=== PATIENT | female | born 1965 | race Caucasian/White ===

== ENCOUNTER 2016-08-12 07:58 | Day surgery (SDC) | payer BC ==
[~2016-08-12 07:58] MED LIST: DIPHENHYDRAMINE HCL 50 MG/ML VIAL ONE; EPINEPHRINE INJ 1 MG/10 ML DISP.SYRIN ONE; FLUMAZENIL INJ 0.5 MG/5 ML VIAL IV ONE; GLUCAGON,HUMAN RECOMB 1 MG INJ ONE; NALOXONE HCL INJ/PF 0.4 MG/1 ML SDV ONE; ONDANSETRON HCL INJ/PF 4 MG/2 ML SDV ONE; PROMETHAZINE HCL INJ 25 MG/1 ML VIAL ONE
[2016-08-12] MEDS: MIDAZOLAM 2 MG/2 ML INJ ONE ×3 (08:46→08:56)
[2016-08-12] MEDS: FENTANYL CITRATE INJ/PF 100 MCG/2 ML AMPUL ONE ×3 (08:48→08:54)
--- NOTE | 2016-08-12 09:53 | Operative Report ---
Operative Report DATE OF SURGERY: 08/12/16 Operative Report: The risks benefits and alternatives of the procedure explained to the patient in detail and informed consent is obtained that GIF Olympus video scope was inserted into the patient's mouth and hypopharynx the esophagus is identified intubated and insufflated the scope was then advanced through the esophagus stomach and duodenum retroflexion maneuver is done the esophagus stomach and first and second portions of the duodenum examined PREOPERATIVE DIAGNOSIS: Dysphagia POSTOPERATIVE DIAGNOSIS: Schatzki's ring. Hiatal hernia. Gastritis OPERATION: EGD with biopsy SURGEON: OSMIN ALVAREZ ANESTHESIA: Moderate Sedation - 6 mg of Versed, 100 g of fentanyl. Conscious sedation monitoring done 15 minutes. TISSUE REMOVED OR ALTERED: Gastric specimens obtained COMPLICATIONS: None. ESTIMATED BLOOD LOSS: none INTRAOPERATIVE FINDINGS: Schatzki's ring that is broken. PROCEDURE: Patient tolerated the procedure well. No immediate postprocedure complications are noted. Patient is discharged in good condition. Discharge date 08/12/2016. Discharge diet: Regular. Discharge activity: Regular. 2-3 week follow-up to discuss findings. We'll await on biopsies. Patient is instructed to call the office or proceed to the emergency room should there be any further problems or questions.
[2016-08-12 10:11] VITALS: BP 115/70
== END 2016-08-12 10:15 | disposition home or self-care (01) ==
LOC: END 07:58
PROVIDERS: ATTEND Internal Medicine Gastroenterology
PROC: 0DB68ZX Excision of Stomach, Via Natural or Artificial Opening Endoscopic, Diagnostic (ICD-10-PCS; principal; 2016-08-12 08:30)
DX: K44.9 Diaphragmatic hernia without obstruction or gangrene (principal); K29.50 Unspecified chronic gastritis without bleeding; K22.2 Esophageal obstruction; I10 Essential (primary) hypertension; G47.30 Sleep apnea, unspecified; F41.1 Generalized anxiety disorder; F33.8 Other recurrent depressive disorders; M19.90 Unspecified osteoarthritis, unspecified site; Z79.899 Other long term (current) drug therapy
CPT/HCPCS: 43239; 88342 ×2; 88305 ×2; J2250; J3010; J0171; J1200; J1610; J2310; J2405; J2550; J3490

== ENCOUNTER → 2017-05-19 | Outpatient (CLI) | payer BC ==
--- NOTE | 2017-05-19 12:13 | RADIOLOGY REPORT (SQ) ---
EXAM DESCRIPTION: U/S ABDOMEN COMPLETE W/O DOP COMPLETED DATE/TIME: 05/19/2017 10:48 am REASON FOR STUDY: RUQ ABD PAIN (R10.11) R10.11 RIGHT UPPER QUADRANT PAIN COMPARISON: None. TECHNIQUE: Dynamic and static grayscale images acquired of the abdomen and recorded on PACS. Additio nal selected color Doppler and spectral images recorded. LIMITATIONS: Midline bowel gas FINDINGS: PANCREAS: Midline pancreas unremarkable LIVER: No masses. Echotexture normal. LIVER VASCULATURE: Normal directional flow of the main portal vein and hepatic veins. GALLBLADDER: No stones. Normal wall thickness. No pericholecystic fluid. ULTRASOUND-DETECTED JONES'S SIGN: Negative. INTRAHEPATIC DUCTS AND COMMON DUCT: CBD and intrahepatic ducts normal caliber. No filling defects. INFERIOR VENA CAVA: Normal flow. AORTA: Not well seen RIGHT KIDNEY: Normal size. Normal echogenicity. No solid or suspicious masses. No hydronephros is. No calcifications. LEFT KIDNEY: Normal size. Normal echogenicity. No solid or suspicious masses. No hydronephrosi s. No calcifications. SPLEEN: Normal size. No solid masses. PERITONEAL AND PLEURAL SPACES: No ascites or effusions. OTHER: No other significant finding. IMPRESSION: Abdominal aorta not well seen due to midline bowel gas. Otherwise unremarkable study TECHNICAL DOCUMENTATION: JOB ID: [id number] [email or web address]- All Rights Reserved
== END ==
LOC: RAD 09:56
PROVIDERS: ATTEND Physician Assistant
DX: R10.11 Right upper quadrant pain (principal)
CPT/HCPCS: 76700

== ENCOUNTER → 2019-06-05 | Outpatient (CLI) | payer BC ==
--- NOTE | 2019-06-06 00:34 | XCELERA REPORT ---
[address] [address] Transthoracic Echocardiogram Report Name: SILVERIO CONLEY Age: 53 yrs Gender: Female : 1965 Patient Status: Outpatient Patient Location: Study Date: 06/05/2019 11:01 AM Height: 66 in Weight: 282 lb BSA: 2.3 m2 Procedure: A two-dimensional transthoracic echocardiogram with color flow and Doppler was performed. The study was technically difficult with many images being suboptimal in quality. The study was technically limited with all images being suboptimal in quality. Reason For Study: MURMUR History: MURMUR. Ordering Physician: IRMA ADAMS Performed By: Caroline Jimenez Interpretation Summary The left ventricle is normal in size. There is normal left ventricular wall thickness. LV EF is 65% Left ventricular systolic function is normal. Doppler measurements suggest impaired left ventricular relaxation, which is associated with grade I/IV or mild diastolic dysfunction The left ventricular wall motion is normal. There is no thrombus. Probably no ASD,VSD,or PFO seen. The right ventricle is grossly normal size. The right ventricle is not well visualized secondary to technical limitations The right atrium is normal. The left atrial size is normal. There is no evidence of mitral valve prolapse. There is no vegetation seen on the mitral valve. There is no mitral valve stenosis. There is no mitral regurgitation noted. There is no aortic valvular vegetation. There is no aortic valve stenosis There is no LVOT obstruction. No aortic regurgitation is present. There is no tricuspid stenosis. There is a trace amount of tricuspid regurgitation Right ventricular systolic pressure is at the upper limits of normal of Normal.RVSP is 25 to 30 mm of Hg , with RA mean of 5 to 10. There is no pulmonic valvular stenosis. There is a trace amount of pulmonic regurgitation The aortic root is normal size. The inferior vena cava appeared normal and decreased > 50% with respiration (RAP 5-10 mmHg) There is no pericardial effusion. MMode/2D Measurements & Calculations RVDd: 3.0 cm LVIDd: 3.8 cm FS: 39.0 % Ao root diam: 2.8 cm IVSd: 1.3 cm LVIDs: 2.3 cm EDV(Teich): 61.8 ml Ao root area: 6.4 cm2 LVPWd: 0.94 cm ESV(Teich): 18.4 ml LA dimension: 3.6 cm EF(Teich): 70.2 % Doppler Measurements & Calculations MV E max tracey: MV P1/2t max tracey: Ao V2 max: LV V1 max P.4 cm/sec 79.0 cm/sec 128.3 cm/sec 6.7 mmHg MV A max tracey: MV P1/2t: 63.8 msec Ao max PG: LV V1 max: 70.2 cm/sec MVA(P1/2t): 3.4 cm2 6.6 mmHg 129.8 cm/sec MV E/A: 0.92 MV dec slope: 362.7 cm/sec2 MV dec time: 0.21 sec TV V2 max: PA V2 max: TR max tracey: MV P1/2t-pr_phl: 184.0 cm/sec 72.7 cm/sec 221.8 cm/sec 63.8 msec TV max PG: PA max P.1 mmHg TR max P.5 mmHg 19.7 mmHg Left Ventricle The left ventricle is normal in size. There is normal left ventricular wall thickness. LV EF is 65%. Left ventricular systolic function is normal. Doppler measurements suggest impaired left ventricular relaxation, which is associated with grade I/IV or mild diastolic dysfunction. The left ventricular wall motion is normal. There is no thrombus. Probably no ASD,VSD,or PFO seen. Right Ventricle The right ventricle is grossly normal size. The right ventricle is not well visualized secondary to technical limitations. Atria The right atrium is normal. The left atrial size is normal. Mitral Valve There is no evidence of mitral valve prolapse. There is no vegetation seen on the mitral valve. There is no mitral valve stenosis. There is no mitral regurgitation noted. Aortic Valve There is no aortic valvular vegetation. There is no aortic valve stenosis. There is no LVOT obstruction. No aortic regurgitation is present. Tricuspid Valve There is no tricuspid stenosis. There is a trace amount of tricuspid regurgitation. Right ventricular systolic pressure is at the upper limits of normal. of Normal.RVSP is 25 to 30 mm of Hg , with RA mean of 5 to 10. Pulmonic Valve There is no pulmonic valvular stenosis. There is a trace amount of pulmonic regurgitation. Great Vessels The aortic root is normal size. The inferior vena cava appeared normal and decreased > 50% with respiration (RAP 5-10 mmHg). Effusions There is no pericardial effusion. : IRMA ADAMS Lakshmi
== END ==
LOC: SP 10:47
PROVIDERS: ATTEND Physician Assistant
DX: R01.1 Cardiac murmur, unspecified (principal)
CPT/HCPCS: 93306

== ENCOUNTER 2019-07-01 07:41 | Day surgery (SDC) | payer BC ==
[~2019-07-01 07:41] MED LIST changes: -DIPHENHYDRAMINE HCL 50 MG/ML VIAL ONE; -EPINEPHRINE INJ 1 MG/10 ML DISP.SYRIN ONE; -FLUMAZENIL INJ 0.5 MG/5 ML VIAL IV ONE; -GLUCAGON,HUMAN RECOMB 1 MG INJ ONE; -NALOXONE HCL INJ/PF 0.4 MG/1 ML SDV ONE; -ONDANSETRON HCL INJ/PF 4 MG/2 ML SDV ONE; -PROMETHAZINE HCL INJ 25 MG/1 ML VIAL ONE; +PROPOFOL INJ 200 MG/20 ML VIAL IV ONE
[2019-07-01] MEDS ORDERED: PROPOFOL INJ 200 MG/20 ML VIAL IV ONE (10:09)
[2019-07-01 10:54] VITALS: BP 123/78
--- NOTE | 2019-07-01 12:51 | Operative Report ---
Operative Report DATE OF SURGERY: 07/01/19 Operative Report: Risk, benefits and alternatives of the procedure including the risk of bleeding, perforation requiring surgery have been explained to the patient in detail and informed consent has been obtained. Propofol medication is administered. Rectal examination is done which did not reveal any masses, tears or fissures. Colonoscopy completed to the cecum with evaluation of all of the various segments. Retroflexion maneuvers performed. Upper endoscopy done performed. All of the segments are evaluated. Retroflexion maneuvers performed. PREOPERATIVE DIAGNOSIS: Dysphagia. Personal history of polyp POSTOPERATIVE DIAGNOSIS: Right colon Inflammation status post biopsy. Descending colon polyp status post biopsy. Diverticulosis. Internal hemorrhoids. Gastritis status post biopsy. Schatzki's ring status post br eakage OPERATION: Colonoscopy with biopsy. EGD with biopsy SURGEON: OSMIN ALVAREZ ANESTHESIA: LMAC TISSUE REMOVED OR ALTERED: As noted above. COMPLICATIONS: None. ESTIMATED BLOOD LOSS: None. INTRAOPERATIVE FINDINGS: As noted above. PROCEDURE: Patient tolerated the procedure well. No immediate postprocedure complications are noted. Patient is discharged in good condition. Discharge date 07/01/2019. Discharge diet: Regular. Discharge activity: Regular. 2 to 3-week follow-up to discuss findings. Patient is instructed to call the office or proceed to the emergency room should there be any further problems or questions. Wait on the pathology. 5-year surveillance colonoscopy.
== END 2019-07-01 10:45 | disposition home or self-care (01) ==
LOC: END 07:41
PROVIDERS: ATTEND Internal Medicine Gastroenterology
DX: Z12.11 Encounter for screening for malignant neoplasm of colon (principal); K57.30 Diverticulosis of large intestine without perforation or abscess without bleeding; D12.4 Benign neoplasm of descending colon; K64.8 Other hemorrhoids; K22.2 Esophageal obstruction; K52.9 Noninfective gastroenteritis and colitis, unspecified; Z86.010 Personal history of colon polyps; I10 Essential (primary) hypertension; G47.33 Obstructive sleep apnea (adult) (pediatric); E66.9 Obesity, unspecified; Z68.41 Body mass index [BMI] 40.0-44.9, adult
CPT/HCPCS: 43239; 45380; 88342 ×2; 88305 ×2; 00813; J2704; 813

== ENCOUNTER 2019-11-11 17:05 | Emergency (ER) | payer BC ==
[2019-11-11] MEDS ORDERED: ACETAMINOPHEN 325 MG TABLET PO ONE (20:36)
--- NOTE | 2019-11-11 20:39 | ER Document Report ---
ED General - General Chief Complaint: Fever Stated Complaint: FEVER,SORE THROAT,HEADACHE Time Seen by Provider: 11/11/19 20:09 Primary Care Provider: IRMA ADAMS PA-C [Primary Care Provider] - Follow up as needed Notes: 54-year-old female with past medical history of migraines, chronic low back pain and hypertension presenting today for headache and fever. States that she typically checks her 's temperature and his was 100 today and she checked hers and her temp was 99.4 at home. States she typically takes ibuprofen for her back pain and last dose of ibuprofen was this morning. She has a mild headache for 2 days. Described as a congestion pressure. No sharp stabbing pain. No pain behind the eye. Described as more along lateral head. States she may have some mild sinus congestion as well. No nausea/vomiting. No acute severe onset. No nuchal rigidity. No neck pain. No photophobia. No acute trauma to the head. She denies any additional symptoms to include chills, shortness of breath, chest pain. States occassionally has hot flashes due to menopause. TRAVEL OUTSIDE OF THE [place] IN LAST 30 DAYS: No - Related Data Allergies/Adverse Reactions: No Known Allergies Allergy (Verified 08/09/16 13:30) Past Medical History - Social History Smoking Status: Never Smoker Chew tobacco use (# tins/day): No Frequency of alcohol use: Occasional Drug Abuse: None Family History: Reviewed & Not Pertinent Patient has homicidal ideation: No - Past Medical History Cardiac Medical History: Reports: Hx Coronary Artery Disease - HIGH CHOLESTEROL , Hx Hypertension Denies: Hx Heart Attack Pulmonary Medical History: Denies: Hx Asthma, Hx Bronchitis, Hx COPD, Hx Pneumonia Neurological Medical History: Reports: Hx Migraine. Denies: Hx Cerebrovascular Accident, Hx Seizures Endocrine Medical History: Reports: None Renal/ Medical History: Reports: Other - incontinence Musculoskeletal Medical History: Denies Hx Arthritis Other: back pain Past Surgical History: Denies: Hx Hysterectomy - Immunizations Hx Diphtheria, Pertussis, Tetanus Vaccination: No Review of Systems - Review of Systems Constitutional: See HPI EENT: No symptoms reported Cardiovascular: No symptoms reported Respiratory: No symptoms reported Gastrointestinal: No symptoms reported Genitourinary: Incontinence Female Genitourinary: No symptoms reported Musculoskeletal: Back pain Skin: No symptoms reported Hematologic/Lymphatic: No symptoms reported Neurological/Psychological: No symptoms reported Physical Exam - Vital signs Vitals: Temp 98.2 F 11/11/19 17:06 Interpretation: Normal Notes: Mildly hypertensive at 144/78. Other vital signs are unremarkable. - Notes Notes: Adult General: GENERAL: Alert, interacts well. No acute distress HEAD: Normocephalic, atraumatic EYES: Pupils equal, round and reactive to light. Extraocular movements intact. ENT: Oral mucosa moist, tongue midline. Oropharynx unremarkable. Airway patent. Nares patent, sinuses nontender, ear canals unremarkable, TMs intact. NECK: Full range of motion. Supple. Trachea midline. No lymphadenopathy. No nuchal rigidity. LUNGS: Clear to auscultation bilaterally, no wheezes, rales, or rhonchi. No respiratory distress. Nontender chest wall. HEART: Regular rate and rhythm. No murmurs, rubs or gallops. ABDOMEN: Soft, nontender. Nondistended. Bowel sounds present in all 4 quadrants. GENITOURINARY: Deferred EXTREMITIES: Moves all 4 extremities spontaneously. No edema, normal radial and dorsal pedis pulses bilaterally. No cyanosis. BACK: No cervical, thoracic, lumbar midline tenderness. No saddle anesthesia, normal distal neurovascular exam. Moves all extremities with full range of motion. NEUROLOGICAL: Alert and oriented x3. Normal speech. Cranial nerves II through XII grossly intact. Strength 5/ 5 in all extremities. PSYCH: Normal affect, normal mood. SKIN: Warm, dry, normal turgor. Stretch dickens on abdomen. Course - Re-evaluation Re-evalutation: 11/11/19 20:46 Patient presenting for evaluation for a temperature of 99.4 this morning and mild headache for 2 days. She has low back pain that is chronic. States she denies any nuchal rigidity, chills, nausea vomiting, abdominal pain, diarrhea or any additional symptoms. Last dose of ibuprofen for her back pain was this morning. She is currently afebrile temp of 98.1. Her blood pressure is mildly elevated at 144/78. She is neurologically intact. Will treat patient's headache with Tylenol at this time. Do not feel the patient needs to be tested for COVID at this time. 11/11/19 21:16 Notified by the nurse that patient is ready to leave. States that her is waiting in the car and that he is sick. Patient now informs provider that her had a possible exposure to COVID. We will go ahead and test patient for COVID at this time. Do not feel patient needs any additional lab testing at this time as she is afebrile, vitals are normal and no concerning headache symptoms. I discussed with patient self isolation until she hears from the health department. She can take Tylenol ibuprofen for her headache. Also discussed that if her symptoms return or worsen she can follow-up with the emergency department. Patient knowledges and verbalizes understanding of instructions and plan. All questions answered. - Vital Signs Vital signs: Temp Pulse Resp BP Pulse Ox 98.7 F 73 15 140/76 H 99 11/11/19 21:57 11/11/19 21:57 11/11/19 18:14 11/11/19 21:57 11/11/19 21:57 Discharge - Discharge Clinical Impression: Person under investigation for COVID-19 Headache Qualifiers: Headache type: unspecified Headache chronicity pattern: acute headache Intractability: not intractable Qualified Code(s): R51 - Headache Condition: Stable Disposition: HOME, SELF-CARE Instructions: COVID-19 Guidance for Persons Under Investigation, Acetaminophen Additional Instructions: At the present investigation for COVID-19, the [place] Department of Health and Human Services (division on public health) advises you to adhere to the following guidance until your test results are reported to you. If your test result is positive, you will receive additional formation from your provider in your local health department at that time. Remain at home until you are cleared by the health provider or public health authorities. Keep a log of visitors to your home, notify any visitors to your home of your isolation status. If you plan to move to a new address of the country, notify the local health department in your County. Call your doctor or seek care if you have emergent medical need. Before seeking medical care, call him to get instructions from the provider before arriving at the medical office, clinic, or hospital. Notified them that you are being tested for the virus (COVID-19) so that arrangements can be made, as necessary, to prevent transmission to others in the healthcare setting. Next, notified the local health department in your county. If the medical emergency arises any need to call 911, and from the first responders that you are being tested for the virus that causes COVID-19. Next, notify the local health department and your county. You are currently afebrile in the emergency department. For your headache you may take Tylenol or ibuprofen. Please return to the emergency department you have worsening symptoms or development of new symptoms. Please follow-up with your primary care provider soon as possible for your headache. Referrals: IRMA ADAMS PA-C [Primary Care Provider] - Follow up as needed
[2019-11-11 22:02] VITALS: BP 140/76
== END 2019-11-11 22:02 | disposition home or self-care (01) ==
LOC: ER 17:05
DX: R51 Headache (principal); R50.9 Fever, unspecified; N95.1 Menopausal and female climacteric states; I10 Essential (primary) hypertension; R32 Unspecified urinary incontinence; M54.5 Low back pain; G89.29 Other chronic pain; Z79.1 Long term (current) use of non-steroidal anti-inflammatories (NSAID); Z20.828 Contact with and (suspected) exposure to other viral communicable diseases; I25.10 Atherosclerotic heart disease of native coronary artery without angina pectoris; Z86.69 Personal history of other diseases of the nervous system and sense organs
CPT/HCPCS: 99284; 87635; C9803; 36415

== ENCOUNTER 2019-11-27 06:30 | Emergency (ER) | payer BC ==
[2019-11-27 06:40] VITALS: BP 137/71
--- NOTE | 2019-11-27 07:34 | ER Document Report ---
ED General - General Chief Complaint: Fall Stated Complaint: FALL,PAIN IN HIP,SWOLLEN HIP Time Seen by Provider: 11/27/19 07:16 Primary Care Provider: IRMA ADAMS PA-C [Primary Care Provider] - Follow up as needed Notes: 54-year-old lady presents with right buttocks pain and left knee pain after falling on a boat. She was helping the boat dock, and knocked her anterior left knee on the piling of the dock and then twisted in an awkward way and hit her left buttock against the boat gunwale. Lateral hip pain, ambulatory able to sit. Takes tramadol intermittently has been using for the pain. There is bruising at the left knee but not the hip. No other injuries. TRAVEL OUTSIDE OF THE [place] IN LAST 30 DAYS: No - Related Data Allergies/Adverse Reactions: No Known Allergies Allergy (Verified 11/27/19 07:15) Home Medications: tramadol prn. omeprazole. baclofen. gralise. ibuprofen. emgality. lisinopril. diazepam. dixilant. rizatriptan. fluoxetine. gabapentin Past Medical History - General Information source: Patient - Social History Smoking Status: Never Smoker Chew tobacco use (# tins/day): No Frequency of alcohol use: None Drug Abuse: None Family History: Reviewed & Not Pertinent Patient has homicidal ideation: No - Past Medical History Cardiac Medical History: Reports: Hx Coronary Artery Disease - HIGH CHOLESTEROL , Hx Hypertension Denies: Hx Heart Attack Pulmonary Medical History: Denies: Hx Asthma, Hx Bronchitis, Hx COPD, Hx Pneumonia Neurological Medical History: Reports: Hx Migraine. Denies: Hx Cerebrovascular Accident, Hx Seizures GI Medical History: Reports: Hx Gastroesophageal Reflux Disease Musculoskeletal Medical History: Reports Hx Arthritis Past Surgical History: Denies: Hx Hysterectomy - Immunizations Hx Diphtheria, Pertussis, Tetanus Vaccination: No Review of Systems - Review of Systems Notes: REVIEW OF SYSTEMS GEN: Denies fever, chills, weight loss ENT: Denies sore throat, nasal discharge, ear pain EYES: Denies blurry vision, eye pain, discharge CV: Denies chest pain, palpitations, edema RESP: Denies cough, shortness of breath, wheezing GI: Denies abdominal pain, nausea, vomiting, diarrhea MSK: Buttock pain left knee pain SKIN: Denies rash, skin lesions LYMPH: Denies swollen glands/lymph nodes NEURO: Denies headache, focal weakness or numbness, dizziness PSYCH: Denies depression, suicidal or homicidal ideation PHYSICAL EXAMINATION General: No acute distress, well-nourished Head: Atraumatic, normocephalic ENT: Mouth normal, oropharynx moist, no exudates or tonsillar enlargement Eyes: Conjunctiva normal, pupils equal, lids normal Neck: No JVD, supple, no guarding CVS: Normal rate, regular rhythm, no murmurs Resp: No resp distress, equal and normal breath sounds bilaterally GI: Nondistended, soft, no tenderness to palpation, no rebound or guarding Ext: No deformities, no edema, normal range of motion in upper and lower ext. Tiny contusion just medial to the left patella with no patellar tenderness good range of motion no joint line tenderness no laxity. Tenderness in the right buttock area not over the sacrum or the hip joint with full range of motion and no hematoma/contusion Back: No CVA or midline TTP Skin: No rash, warm Lymphatic: No lymphadeopathy noted Neuro: Awake, alert. Face symmetric. GCS 15. Physical Exam - Vital signs Vitals: Temp Pulse Resp BP Pulse Ox 98.6 F 85 20 137/71 H 100 11/27/19 06:38 11/27/19 06:38 11/27/19 06:38 11/27/19 06:38 11/27/19 06:38 Course - Re-evaluation Re-evalutation: 11/27/19 07:41 Bone injury to the knee and buttock No sign of sciatica X-rays negative for fracture doubt significant ligamentous injury or other serious injury Ice heat etc. tramadol add Motrin and Tylenol at home. Safe for discharge. I have discussed with the patient there likely diagnosis, aftercare plan, follow- up plans and my usual and customary return precautions. They verbalized understanding of this. - Vital Signs Vital signs: Temp Pulse Resp BP Pulse Ox 98.6 F 85 20 137/71 H 100 11/27/19 07:15 11/27/19 06:38 11/27/19 06:38 11/27/19 06:38 11/27/19 06:38 Discharge - Discharge Clinical Impression: Contusion of left knee Qualifiers: Encounter type: initial encounter Qualified Code(s): S80.02XA - Contusion of left knee, initial encounter Contusion of right hip Qualifiers: Encounter type: initial encounter Qualified Code(s): S70.01XA - Contusion of right hip, initial encounter Condition: Good Disposition: HOME, SELF-CARE Instructions: Contusion ([facility]) Additional Instructions: X-rays normal on hip and knee Please use ice, follow-up with primary care if still in pain in 5 days Referrals: IRMA ADAMS PA-C [Primary Care Provider] - Follow up as needed
--- NOTE | 2019-11-27 07:51 | RADIOLOGY REPORT (SQ) ---
Left knee radiographs: 11/27/2019 6:50 AM CDT HISTORY: 54-year-old patient with left knee pain. TECHNIQUE: AP and lateral images of the left knee were obtained. COMPARISON: None available FINDINGS: There are no findings to suggest an acute fracture or subluxation. No suprapatellar joint effusion is seen. The visualized soft tissues are grossly unremarkable. No gross erosions or abnormal soft tissue calcifications are seen. IMPRESSION: There are no findings to suggest an acute fracture or subluxation within the left knee.
--- NOTE | 2019-11-27 07:52 | RADIOLOGY REPORT (SQ) ---
EXAM: X-ray pelvis 1-2 views CLINICAL DATA: 54-year-old female with knee and hip pain status post fall in a boat yesterday TECHNICAL DATA: A single AP x-ray view of the pelvis was performed on 11/27/2019 at 7:31 AM. COMPARISONS: None FINDINGS: There is no evidence of fracture or dislocation. There is no significant arthritis or degenerative change. No focal lytic or sclerotic bone lesions are seen. Bone mineralization is normal. No focal soft tissue abnormalities are identified. IMPRESSION: No evidence of acute osseous injury involving the pelvis or hip joints.
== END 2019-11-27 07:39 | disposition home or self-care (01) ==
LOC: ER 06:30
DX: S80.02XA Contusion of left knee, initial encounter (principal); S70.01XA Contusion of right hip, initial encounter; M79.10 Myalgia, unspecified site; V93.39XA Fall on board unspecified watercraft, initial encounter; E78.00 Pure hypercholesterolemia, unspecified; I10 Essential (primary) hypertension
CPT/HCPCS: 72170; 99283